=== PATIENT | female | born 1985 | race Caucasian/White ===

== ENCOUNTER 2017-05-16 15:10 | Emergency (ER) | payer MEDICAID ==
[~2017-05-16] VITALS: Ht 165.1 cm; Wt 54.5 kg
[~2017-05-16 15:10] MED LIST: ALBUTEROL0.09 MG/A4 IH; ALPRAZOLAM; AMOXICILLIN 50500 MG PO; BCP TD; CELEXA; CEPHALEXIN500 M1 PO; CLEOCIN HC150 MG/CAP PO; CLEOCIN HCL300 MG PO; CLINDAMYCIN HC300 MG PO; CLINDAMYCIN150 MG PO; CLINDAMYCIN300 MG PO; CYMBALTA30 MG PO; DECADRON4 MG PO; DESYREL 100MG100 MG PO; DESYREL 50MG50 MG PO; FLEXERIL10 MG PO; KLONOPIN PO; KLONOPIN0.5 MG PO; LAMICTAL 25MG T25 MG PO; LEXAPRO 10MG10 MG PO; LORTAB 5/500 501 TAB PO; LORTAB 7.5/5001 TAB; LORTAB 7.5/5001 TAB PO; MOTRIN600 MG PO; MULTI VITAMINS1 TAB PO; MULTIPLE VITAMI1 CAP PO; MVI; NAPROSYN375 MG PO; NAPROSYN500 MG PO; NO HOME MEDICATIONS; NORCO 325 MG-51 TAB PO; NORCO 325 MG-7.1 TAB PO; PERCOCET 325 MG1 TA2 PO; PERCOCET 5/321 UDTAB PO; PERCR 7.5 PO; PRENATAL VITAMI1 TA5 PO; PROMETHAZINE V473 M2 PO; REMERON15 M1 PO; SEROQUEL XR150 MG PO; ULTRAM 50MG TAB50 MG PO; VICODIN PO; XANAX .25M0.25 MG/TA PO; XANAX 0.5MG0.5 MG PO; ZANAFLEX CAPSULE4 MG PO; ZITHROMAX Z PA250 MG PO; ZYPREXA 5MG5 MG PO
[2017-05-16 15:16] VITALS: TEMP 98.5
[2017-05-16] MEDS ORDERED: NORCO 325 MG-51 TAB PO (17:19)
[2017-05-16] MEDS ORDERED: CEPHALEXIN500 M1 PO (17:19)
[2017-05-16 17:24] VITALS: BP 98/71; PULSE 92
== END 2017-05-16 17:30 | disposition home or self-care (01) ==
LOC: COL.ER 15:10
DX: K02.9 Dental caries, unspecified (principal); J45.909 Unspecified asthma, uncomplicated; F31.9 Bipolar disorder, unspecified; M79.7 Fibromyalgia; F17.210 Nicotine dependence, cigarettes, uncomplicated; G89.29 Other chronic pain; M54.9 Dorsalgia, unspecified

== ENCOUNTER 2017-05-19 14:52 | Emergency (ER) | payer MEDICAID ==
[~2017-05-19] VITALS: Ht 165.1 cm; Wt 54.5 kg
[2017-05-19 14:58] VITALS: BP 106/82; TEMP 98
[2017-05-19 15:37] VITALS: PULSE 88
== END 2017-05-19 15:39 | disposition home or self-care (01) ==
LOC: COL.ER 14:52
DX: G89.29 Other chronic pain (principal); K08.89 Other specified disorders of teeth and supporting structures; F32.9 Major depressive disorder, single episode, unspecified; F41.9 Anxiety disorder, unspecified; F17.210 Nicotine dependence, cigarettes, uncomplicated; Z87.39 Personal history of other diseases of the musculoskeletal system and connective tissue

== ENCOUNTER 2018-01-18 15:08 | Emergency (ER) | payer MEDICAID ==
[~2018-01-18] VITALS: Ht 165.1 cm; Wt 54.5 kg
[2018-01-18 15:17] VITALS: TEMP 99.1
[2018-01-18 15:36] LABS: COLLECTION METHOD CLEAN CATCH
[2018-01-18] MEDS ORDERED: PROZAC40 MG PO (15:36)
[2018-01-18] MEDS ORDERED: ZYPREXA 5MG5 MG PO (15:37)
[2018-01-18] MEDS ORDERED: NEURONTIN300 MG/CAP PO (15:37)
[2018-01-18] MEDS ORDERED: KLONOPIN 1MG1 MG PO (15:38)
[2018-01-18 16:11] LABS: HYALINE CAST >12 /lpf; MUCOUS Present /lpf; PH 5 (5-8); SQUAMOUS EPITHELIAL 20-50 /hpf; URINE APPEARANCE Cloudy; URINE BACTERIA None Seen /hpf; URINE BILIRUBIN Positive (NEGATIVE); URINE BLOOD 3+ (NEGATIVE); URINE COLOR Amber; URINE GLUCOSE Negative (NEGATIVE); URINE KETONE 1+ (NEGATIVE); URINE LEUKOCYTE ESTERASE 1+ (NEGATIVE); URINE NITRATE Negative (NEGATIVE); URINE PROTEIN(semi-quant) 2+ (NEGATIVE); URINE UROBILINOGEN >=4.0 mg/dL (NEGATIVE)
[2018-01-18] MEDS ORDERED: NORCO 325 MG-51 TAB PO (16:48)
[2018-01-18 16:50] VITALS: BP 137/80; PULSE 89
== END 2018-01-18 17:06 | disposition home or self-care (01) ==
LOC: COL.ER 15:08
PROVIDERS: Emergency Medicine
DX: S33.9XXA Sprain of unspecified parts of lumbar spine and pelvis, initial encounter (principal); S90.02XA Contusion of left ankle, initial encounter; S90.01XA Contusion of right ankle, initial encounter; V13.4XXA Pedal cycle driver injured in collision with car, pick-up truck or van in traffic accident, initial encounter

== ENCOUNTER 2018-03-16 16:59 | Emergency (ER) | payer MEDICAID ==
[~2018-03-16] VITALS: Ht 165.1 cm; Wt 56.8 kg
[~2018-03-16 16:59] MED LIST changes: +KLONOPIN 1MG1 MG PO; +NEURONTIN300 MG/CAP PO; +PROZAC40 MG PO
[2018-03-16 17:08] VITALS: BP 100/62; TEMP 99.2
[2018-03-16] MEDS ORDERED: SINEQUAN 2525 MG/CAP PO (17:36)
[2018-03-16 17:58] LABS: BASO % 0.2 % (0.0-2.0); EOS # 0.1 (0.0-0.7); EOS % 0.5 % (0-4.0); GRAN # 10.7 (1.4-6.5); GRAN % 81.7 % (42.2-75.2); HEMATOCRIT 40.4 % (37.0-47.0); LYMPH # 1.5 (1.2-3.4); LYMPH % 11.2 % (20.0-51.0); MEAN CELL VOLUME 95 fl (80.0-100.0); MEAN CORPUSCULAR HEMOGLOBIN 33 pg (27.0-31.0); MEAN CORPUSCULAR HGB CONC 35 g/dl (33.0-37.0); MONO # 0.8 (0.1-0.6); PLATELET COUNT 230 K/mm3 (130-400); RED BLOOD COUNT 4.25 M/mm3 (4.10-5.30); REDCELL DISTRIBUTION WIDTH-CV 11.8 % (11.5-14.5)
[2018-03-16 18:10] LABS: ALBUMIN 3.8 gm/dL (3.5-5.0); BILIRUBIN,TOTAL 0.9 mg/dL (0.0-1.0); C-REACTIVE PROTEIN 5.5 mg/dL (0.0-0.9); CALCIUM 8.2 mg/dL (8.4-10.2); CREATININE, serum 0.86 mg/dL (0.52-1.25); POTASSIUM 3.1 mmol/L (3.4-5.0); TOTAL PROTEIN 6.9 gm/dL (6.4-8.2)
[2018-03-16 18:13] LABS: MAGNESIUM 2.1 mg/dL (1.6-2.3); PHOSPHOROUS 2.2 mg/dL (2.5-4.5)
[2018-03-16 18:14] LABS: ALCOHOL(ethanol),MEDICAL < 10 mg/dL
[2018-03-16 18:57] LABS: COLLECTION METHOD CLEAN CATCH
[2018-03-16 19:11] LABS: AMORPHOUS CRYSTAL Present /uL; MUCOUS Present /lpf; PH 5 (5-8); SQUAMOUS EPITHELIAL 20-50 /hpf; URINE APPEARANCE Cloudy; URINE BACTERIA Rare /hpf; URINE BILIRUBIN Negative (NEGATIVE); URINE BLOOD 2+ (NEGATIVE); URINE COLOR Red; URINE GLUCOSE Negative (NEGATIVE); URINE KETONE Trace (NEGATIVE); URINE LEUKOCYTE ESTERASE Trace (NEGATIVE); URINE NITRATE Negative (NEGATIVE); URINE PROTEIN(semi-quant) 2+ (NEGATIVE); URINE RBC >50 /hpf; URINE UROBILINOGEN Negative (NEGATIVE)
[2018-03-16 19:14] LABS: TRICYCLIC ANTIDEPRESS URINE POSITIVE
[2018-03-16] MEDS ORDERED: OMNICEF 300MG300 MG PO (20:14)
[2018-03-16] MEDS ORDERED: K-DUR20 MEQ PO (20:14)
[2018-03-16 21:34] VITALS: PULSE 112
== END 2018-03-16 21:34 | disposition home or self-care (01) ==
LOC: COL.ER 16:59
PROVIDERS: Emergency Medicine
DX: M25.572 Pain in left ankle and joints of left foot (principal); M25.571 Pain in right ankle and joints of right foot; N39.0 Urinary tract infection, site not specified; F19.10 Other psychoactive substance abuse, uncomplicated; F32.9 Major depressive disorder, single episode, unspecified; F41.9 Anxiety disorder, unspecified; E87.6 Hypokalemia; F17.210 Nicotine dependence, cigarettes, uncomplicated
CPT/HCPCS: J0696; J2060; J7030

== ENCOUNTER 2020-01-07 05:14 | Outpatient (CLI) | payer MEDICAID ==
[~2020-01-07] VITALS: Ht 165.1 cm; Wt 50.9 kg
[2020-01-07] VITALS (9 sets, daily range): BP systolic 99–117; BP diastolic 64–82; PULSE 68–91; TEMP 98.7–99
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
[~2020-01-07 05:14] MED LIST changes: +K-DUR20 MEQ PO; +OMNICEF 300MG300 MG PO; +SINEQUAN 2525 MG/CAP PO
[2020-01-07] MEDS ORDERED: ZOLOFT 100MG100 MG PO (05:27)
[2020-01-07] MEDS ORDERED: BUPRENORPHINE HY2 MG PO (05:30)
[2020-01-07] MEDS ORDERED: BUPRENORPHINE HY2 MG SL (05:31)
[2020-01-07] MEDS ORDERED: PRENATAL TABLET PO (05:32)
[2020-01-07 06:58] LABS: TRICYCLIC ANTIDEPRESS URINE NEGATIVE
--- NOTE | 2020-01-07 07:40 | NUR ---
air technician here and at bedside. 0745: Dr. Lopez here and reviews monitor strip. 0750:Physician at beside during US.
[2020-01-07 08:19] LABS: COLLECTION METHOD CLEAN CATCH
--- NOTE | 2020-01-07 08:25 | NUR ---
US done and report given to Dr Lopez. BPP 01/04, GILDA WNL. Pt back to EFM at this time. Pt denies feeling any more contractions and states she is feeling baby move now. baseline 155bpm and at 0857 decel noted, fhr decreased to 120bpm for 2 minutes. 0910:Dr Lopez called and spoke with MFM in [place] and orders received to DC home at this time and pt to follow up with MFM this week. Physician at bedside and plan of care reviewed with pt. Pt requesting to go home at this time. UA results reviewed by physician as well, no further orders. 0920:IV removed. DC instructions given, pt verbalizes understanding. No further questions noted. 0945:pt to personal vehicle.
[2020-01-07 08:46] LABS: PH 7 (5-8); SQUAMOUS EPITHELIAL 0-2 /hpf; URINE APPEARANCE Clear; URINE BACTERIA None Seen /hpf; URINE BILIRUBIN Negative (NEGATIVE); URINE BLOOD Negative (NEGATIVE); URINE COLOR Yellow; URINE GLUCOSE Negative (NEGATIVE); URINE KETONE Negative (NEGATIVE); URINE LEUKOCYTE ESTERASE Trace (NEGATIVE); URINE NITRATE Negative (NEGATIVE); URINE PROTEIN(semi-quant) Negative (NEGATIVE); URINE RBC 0-2 /hpf; URINE UROBILINOGEN Negative (NEGATIVE)
== END 2020-01-07 09:45 | disposition home or self-care (01) ==
LOC: LDRO 05:14
PROVIDERS: Obstetrics & Gynecology
DX: O09.522 Supervision of elderly multigravida, second trimester (principal); Z3A.25 25 weeks gestation of pregnancy
CPT/HCPCS: J0702; J7120

== ENCOUNTER 2020-03-24 22:22 | Outpatient (CLI) | payer MEDICAID ==
[~2020-03-24] VITALS: Ht 165.1 cm; Wt 62.7 kg
[~2020-03-24 22:22] MED LIST changes: +BUPRENORPHINE HY2 MG PO; +BUPRENORPHINE HY2 MG SL; +PRENATAL TABLET PO; +ZOLOFT 100MG100 MG PO
--- NOTE | 2020-03-24 22:35 | NUR ---
2234- patient wheeled up to the unit, escorted by a patrol police sergeant because she came from the care home. Patient is 36.5 with hx of drug abuse and alcohol use during the . Patient and officer orientated to room and changed into clean gown. RN with patient has she gave a urine sample. Reports GFM, possible SROM around 2100 tonight. Consistented contractions around 5-7 minutes apart starting around 2000 this evening. Patient denies bleeding. 2239- EFM and TOCO on and tracing, vital signs taken, assessment completed. SROM test negative upon initial SVE, patient /2. Discussed plan of care and what to expect. Officer at side of bed and call light within reach.
[2020-03-24] MEDS ORDERED: LEXAPRO20 MG PO (22:58)
[2020-03-24] MEDS ORDERED: ATARAX 25MG25 MG/TAB PO (22:59)
[2020-03-24 23:29] LABS: TRICYCLIC ANTIDEPRESS URINE NEGATIVE
[2020-03-24 23:49] VITALS: BP 117/80; PULSE 100; TEMP 98.2
== END 2020-03-25 ==
LOC: LDRO 22:22
PROVIDERS: Obstetrics & Gynecology
DX: O62.9 Abnormality of forces of labor, unspecified (principal); O99.323 Drug use complicating pregnancy, third trimester; O99.313 Alcohol use complicating pregnancy, third trimester; F17.210 Nicotine dependence, cigarettes, uncomplicated; Z3A.36 36 weeks gestation of pregnancy

== ENCOUNTER 2020-04-01 00:50 | Outpatient (CLI) | payer MEDICAID ==
[~2020-04-01] VITALS: Ht 165.1 cm; Wt 60.5 kg
[~2020-04-01 00:50] MED LIST changes: +ATARAX 25MG25 MG/TAB PO; +LEXAPRO20 MG PO
--- NOTE | 2020-04-01 01:05 | NUR ---
Pt arrived on unit escorted from usp and here for complaints of contractions every 5-10 mins since 2200. Pt denies any leaking of fluid or vaginal bleeding and reports normal movement. EFM and toco monitors started. Vital signs WNL. SVE by this RN /. Plan of care for labor assessment reviewed.
[2020-04-01 01:13] VITALS: BP 105/77; PULSE 100; TEMP 98.4
== END 2020-04-01 02:20 ==
LOC: LDRO 00:50 → LDR 01:45 → LDRO 02:20
DX: O62.9 Abnormality of forces of labor, unspecified (principal); Z3A.37 37 weeks gestation of pregnancy; F17.210 Nicotine dependence, cigarettes, uncomplicated
CPT/HCPCS: OP

== ENCOUNTER → 2020-04-08 | Outpatient (CLI) | payer OTHER ==
[~2020-04-08] MED LIST changes: +IBU600 MG PO
== END | disposition still patient (30) ==
LOC: ZCOL.LAB 01:47
DX: Z20.828 Contact with and (suspected) exposure to other viral communicable diseases (principal)

== ENCOUNTER 2020-04-11 08:48 | Inpatient (IN) | payer OTHER ==
[~2020-04-11] VITALS: Ht 165.1 cm; Wt 62.3 kg
[~2020-04-11 08:48] MED LIST changes: -IBU600 MG PO
[2020-04-14] VITALS (29 sets, daily range): BP systolic 96–131; BP diastolic 58–90; PULSE 78–118; TEMP 98–98.6
--- NOTE | 2020-04-14 07:05 | NUR ---
Pt arrives on unit ambulatory with FOB, "Amos." Presents with court documents for arrival and discharge. See pt chart. Changed into clean gown. Drug UA obtained with this RN in room for extensive drug hx and current incarceration status with [employer]. EFM and toco applied. VSS. IV started in RF. Labs drawn. LR infusing. States ctx but denies vaginal bleeding, LOF, and reports GFM. Admission assessment completed. Consents signed. Bed locked in low position. Call light within reach. No questions or concerns at this time. Pt states FOB has custody of 3y/o and plans of taking this baby home as well. Other children live in [place] with their father. Pt verbalizes fear of PPD, and wants medication regimine communicated for withdrawl PP and continued at the assisted. Discussed pumping/BF and safe medication use with hx. Pt verbalized understanding. SS contacted. Kathleen Huggins RN notified. Will touch base with risk management.
[2020-04-14 08:02] LABS: BASO % 0.3 % (0.0-2.0); EOS # 0.2 (0.0-0.7); EOS % 1.7 % (0-4.0); GRAN # 5.7 (1.4-6.5); HEMATOCRIT 40.3 % (37.0-47.0); HEMOGLOBIN 14.1 g/dl (12.5-16.0); LYMPH # 3.1 (1.2-3.4); MEAN CELL VOLUME 89 fl (80.0-100.0); MEAN CORPUSCULAR HEMOGLOBIN 31 pg (27.0-31.0); MEAN CORPUSCULAR HGB CONC 35 g/dl (33.0-37.0); MEAN PLATELET VOLUME 11.3 fl (7.4-10.4); MONO # 0.7 (0.1-0.6); MONO % 7.6 % (1.7-9.3); PLATELET COUNT 238 K/mm3 (130-400); RED BLOOD COUNT 4.52 M/mm3 (4.10-5.30); REDCELL DISTRIBUTION WIDTH-CV 12.9 % (11.5-14.5)
[2020-04-14 08:25] LABS: TRICYCLIC ANTIDEPRESS URINE NEGATIVE
--- NOTE | 2020-04-14 12:00 | NUR ---
SVE per this RN C/+1. Dr. Lopez notified and requested to unit. Pt prepped for delivery and coached on pushing efforts. 1215-Dr. Lopez at bedside. Begins pushing with pt. Moves vertex well. 1219- of viable female infant attended by Dr. Lopez. Cord clamped x 2 and cut from umbilicus. Infant dried and placed on mother's abdomen. Care of to Kait Lema RN. Apgars 7/9. Cord gases drawn. 1224- of placenta. Fundus firm at umbilicus. Bleeding WNL. Pitocin bolus infusing per protocol. Pericare performed. Ice pack applied. Bed locked in low position. Call light within reach. No questions or concerns at this time.
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
--- NOTE | 2020-04-14 16:11 | NUR ---
painting trades worker filed a CPS #[id number] and will meet with patient on 04/15/2020.
--- NOTE | 2020-04-14 18:27 | NUR ---
This Concrete Truck Driver has discussed this situation with [facility] Director Darion Zarate, legal Darion Lynn Esq, and Kathy Andres [place] Patients Rights Director. Per the Court Order of Transportation (scanned into chart), paragraph 3 "WHEREUPON, the court finds that there is a sufficient basis to require the transportation of the Defendent, Karley Song, to [facility] for the delivery of her baby, when the time comes. During the time the Defendent is at [facility] for the of her child, the court authorizes a furlough; however, during the furlough, the Defendent is not to leave the hospital without permission of the Court." This is henseforth communicated via email to the education department chair and our director of management. I did call the Physician Relations Manager and shared this, including is the patient does attemt to leave AM, we shall make all effort to encourage her to stay while simultaneously calling [facility] that the patient is leaving AMA despite our efforts to encourage her to stay. Courtney Martinez MSN, HEAT TREATING OPERATOR- Concrete Truck Driver ([phone]).
[2020-04-15 02:30] VITALS: BP 114/72; PULSE 88; TEMP 98.4
[2020-04-15 07:40] VITALS: BP 91/63; PULSE 87; TEMP 97.4
--- NOTE | 2020-04-15 08:11 | NUR ---
0800 PT AWAKENED FOR V/S AND ASSESSMENT- VERY SLEEPY AND TOOK AWHILE TO GET ORIENTATED. HARD TO UNDERSTAND SPEECH AND THIS NURSE HAD TO HAVE PT REPEAT HERSELF SEVERAL TIMES SPEECH WAS SLURRED AT TIMES WITH THICK TONGUE.
--- NOTE | 2020-04-15 09:52 | NUR ---
Initial visit attempt; Family resting, Inductor Tester left card of congratulations and God's blessings for the of their daughter along with information regarding the availability of spiritual care at [facility].
[2020-04-15 12:00] VITALS: BP 91/68; PULSE 83; TEMP 97.7
--- NOTE | 2020-04-15 16:19 | NUR ---
mud worker met with patient and father of the baby to assess for needs. Patient openly discusses her drug use and that she will be returning to senior care upon discharge, possibly Tuesday. Father, Amos, is understanding that he will take infant home. DCF report has been made and worker spoke with Adelaida Martinez [phone] and advised of Abstinence scoring of a 4 at Noon. Adelaida states she has 72 hours to make contact with family. Worker advises that will need to be hospitalized until then. Worker plans to see Adelaida on and will await [facility] decision on placement of , either home with Amos or taken into custody. scored a 6 at 12:30 today. Patient states she wishes to be able to zoom her outpatient drug treatments, however, that is not allowed while she is in senior care. Worker provided [facility] information and patient declines the thought ofinpatient as she wishes to return home. Patient and Amos support and plan to go by walk in clinic at [facility] the day she is released from senior care to initiate mental health outpatient treatment. Amos states that he has their 4 year old at home and that he does not work and receives [employer] pension. Amos states that his mother lives in [place] and is supportive.Worker left message for Sona Beltran, industrial relations officer, and patient is aware. Worker collaborated with Dr Le and nurse, Annamarie.
[2020-04-15 17:30] VITALS: BP 99/65; PULSE 95; TEMP 98.4
--- NOTE | 2020-04-15 19:13 | NUR ---
1700 THRU-OUT THE DAY MOM VERY SLEEPY AT TIMES BUT EASY TO AWAKEN. SPEECH SOMETIMES HARD TO UNDERSTAND.
[2020-04-15 19:55] VITALS: BP 112/76; PULSE 87; TEMP 97.9
[2020-04-16 07:45] VITALS: BP 121/85; PULSE 82; TEMP 98
[2020-04-16] MEDS ORDERED: IBU600 MG PO (08:58)
--- NOTE | 2020-04-16 09:07 | NUR ---
Initial visit; Holistic Specialist offered congratulations and God's blessings to parents for the of their daughter. Parents requested prayer for their family. Holistic Specialist offered prayer and God's blessings for their family.
--- NOTE | 2020-04-16 09:36 | NUR ---
yard worker contacted nurse, Anika, at the [facility] and advised of planned discharge today. Anika stated that patient will not be drug tested as the retirement does not have the capability to test. Anika stated patient is in disciplinary watch due to previously making "hooch" in her cell. Anika states that patient will not have access to any materials that can be made into "hooch". Anika stated that patient can have a hand pump and that the retirement will store the breast milk and allow family members to hop picker. Anika confirmed that patient will not have access to attend any zoom type meeting with alcohol and drug treatment while in retirement. Anika stated that patient, normally, does not have slurred speech. Worker collaborated with Dr Le and nursing regarding the above information. Worker met with patient and Amos and advised of pump information. Patient states she wishes to continue to pump at the retirement. Amos said his mother is returning to work and that he will need to return home when patient is discharged back to the retirement. Worker will speak to DCF worker, Adelaida Martinez around 10:00am this date to update on case.
[2020-04-16 12:45] LABS: TRICYCLIC ANTIDEPRESS URINE NEGATIVE
--- NOTE | 2020-04-16 13:08 | NUR ---
Pt escorted to ER entrance at 1300. Box Maker Paperboard from [facility] waiting for pt. Officer handed pt discharge information in manilla envelope, pt had belongings in pt belonging bag. Pt discharge to senior major gifts officer at this time.
== END 2020-04-16 13:00 | DRG 806 ==
LOC: OB 08:48 → LDR 04-14 06:56 → OB 04-14 06:56
PROVIDERS: ADMIT Obstetrics & Gynecology
PROC: 10E0XZZ Delivery of Products of Conception, External Approach (ICD-10-PCS; principal; 2020-04-14)
PROC: 10907ZC Drainage of Amniotic Fluid, Therapeutic from Products of Conception, Via Natural or Artificial Opening (ICD-10-PCS; 2020-04-14)
DX: O99.344 Other mental disorders complicating childbirth (principal); O99.324 Drug use complicating childbirth; Z37.0 Single live birth; O98.42 Viral hepatitis complicating childbirth; B19.20 Unspecified viral hepatitis C without hepatic coma; F31.9 Bipolar disorder, unspecified; F11.10 Opioid abuse, uncomplicated; O71.82 Other specified trauma to perineum and vulva; Z3A.39 39 weeks gestation of pregnancy
CPT/HCPCS: J2590; J7120

== ENCOUNTER 2021-01-08 15:52 | Emergency (ER) | payer OTHER ==
[~2021-01-08 15:52] MED LIST changes: +IBU600 MG PO
[2021-01-08 18:27] LABS: ARTERIAL BLD GAS O2 SATURATION 42.4 % (92-100); ARTERIAL BLOOD GAS PO2 47.3 mmHg (80-100)
[2021-01-08 18:31] LABS: HEMOGLOBIN 11.4 g/dl (12.5-16.0); MEAN CELL VOLUME 107 fl (80.0-100.0); MEAN CORPUSCULAR HEMOGLOBIN 31 pg (27.0-31.0); MEAN CORPUSCULAR HGB CONC 29 g/dl (33.0-37.0); MEAN PLATELET VOLUME 10.9 fl (7.4-10.4); PLATELET COUNT 184 K/mm3 (130-400); RED BLOOD COUNT 3.66 M/mm3 (4.10-5.30); REDCELL DISTRIBUTION WIDTH-CV 11.9 % (11.5-14.5)
[2021-01-08 18:38] LABS: ALANINE AMINOTRANSFERASE 741 U/L (4-34); ALBUMIN 2.7 gm/dL (3.5-5.0); ALKALINE PHOSPHATASE 87 U/L (50-136); ANION GAP 26 mmol/L (7-16); AST,SGOT > 750 U/L (15-37); BILIRUBIN,TOTAL 0.2 mg/dL (0.0-1.0); BLOOD UREA NITROGEN 12 mg/dL (7-17); CALCIUM 7.8 mg/dL (8.4-10.2); CHLORIDE 106 mmol/L (98-107); CREATININE, serum 1.19 (0.52-1.25); GLUCOSE 296 mg/dL (74-106); POTASSIUM 5.2 mmol/L (3.4-5.0); SODIUM 145 mmol/L (137-145)
[2021-01-08 18:40] LABS: CARBON DIOXIDE 13 mmol/L (22-30)
[2021-01-08 18:56] LABS: LYMPHOCYTE 89 % (20.0-51.0); NEUTROPHILS 7 % (42.0-75.2)
[2021-01-08 18:59] LABS: PLATELET ESTIMATE NORMAL (NORMAL)
== END 2021-01-08 17:30 | disposition expired ==
LOC: COL.ER 15:52
PROVIDERS: Family Medicine
DX: I46.9 Cardiac arrest, cause unspecified (principal); F17.200 Nicotine dependence, unspecified, uncomplicated
CPT/HCPCS: J0171; J7030